=== PATIENT | male | born 1950 | race Caucasian/White ===

== ENCOUNTER → 2018-05-23 10:20 | Outpatient (CLI) | payer MEDICARE, OTHER ==
--- NOTE | ~2018-05-23 | ST ---
PATIENT:PARISH MATHEWS MEDICAL RECORD: [id number] SEX: M LOCATION:[facility] ORDER #: ADMISSION DATE: 05/23/18 AGE OF PATIENT: 68 REFERRING PHYSICIAN: INTERPRETING PHYSICIAN: TELMA EMERSON MD DATE OF SERVICE: 05/23/2018 PROCEDURE: Nuclear stress test. INDICATION: Angina, abnormal ECG, shortness of breath, smoking, COPD. DESCRIPTION: The patient was exercised on standard Rachid protocol for 5 minutes, terminated due to achievement of max target heart rate response with 33 mCi of sestamibi injected at peak stress, 11 mCi were used previously for rest images. FINDINGS: Gated SPECT reveals dilated cardiomyopathy, ejection fraction 26%. SPECT imaging: Cardiolite was used as myocardial fusion agent. There is a fixed perfusion defect inferiorly compatible with previous inferior myocardial infarction; however, there is a mixed perfusion defect anterolaterally, partially fixed, partially reversible. OVERALL IMPRESSION: This is a markedly abnormal nuclear stress test suggestive of multivessel coronary artery disease with a fixed perfusion using defect inferiorly, mixed perfusion defect, partially fixed, partially reversible anteriorly and laterally and a dilated ischemic cardiomyopathy, ejection fraction 26%. Would proceed with coronary angiography as followup study. TRANSINT:[id number] Voice Confirmation ID: [id number] DOCUMENT ID: [id number] CC: David Pearson-not found TELMA EMERSON MD CC: [id number] DICTATION DATE: 05/25/18 1427 CHIMNEY BUILDER HELPER: 05/26/18 0139 DEP CLI 05/23/18 [facility] [address] [place] [address]
== END | disposition home or self-care (01) ==
LOC: D.HCCARDIO 10:20
DX: R07.9 Chest pain, unspecified (principal)

== ENCOUNTER → 2018-06-12 06:13 | Outpatient (CLI) | payer MEDICARE, OTHER ==
[~2018-06-12] VITALS: Ht 182.9 cm; Wt 104.5 kg
--- NOTE | ~2018-06-12 | HEMODYNAMI ---
PATIENT:PARISH MATHEWS MEDICAL RECORD: [id number] : 50 LOCATION:[facility] ADMISSION DATE: 06/12/18 Generatedon:06/12/20189:24 Patient name: PARISH MATHEWS Patient #: [id number] SSN: : 1950 Date of study: 06/12/2018 Page: Of Hemodynamic Procedure Report Patient Data Patient Demographics Procedure consent was obtained First Name: PARISH Gender: Male Last Name: GEOFFREY : 1950 Patient #: [id number] Age: 68 year(s) Race: Unknown Additional ID: [id number] Contact details [address]: [address] [place] [address] State: [place] City: [place] Zip code: [address] Admission Admission Data Admission Date: 06/12/2018 Admission Time: 6:13 Admit Source: Other Height (in.): 72 BSA: 2.27 (m2) Height (cm.): 182.88 BMI: 31.39 (kg/m2) Weight (lbs.): 231.49 Weight (kg.): 105 Lab Results Lab Result Date: 06/12/2018 Lab Result Time: 7:10 Biochemistry Name Units Result Min Max BUN mg/dl 20 --(----)*- 7 18 Creatinine mg/dl 1 --(--*-)-- 0.6 1.3 CBC Name Units Result Min Max Hematocrit % 39.9 -*(----)-- 42 54 Hemoglobin g/dl 13.5 --(*---)-- 13.5 17.5 Procedure Procedure Types Cath Procedure Diagnostic Procedure LHC LHC w/Coronaries Procedure Description Procedure Date Procedure Date: 06/12/2018 Procedure Start Time: 9:10 Procedure End Time: 9:23 Procedure Staff Name Function Jairo Conteh MD Performing Physician Rudolph Rey RN Nurse Neno Dean RT Scrub Neil Salvador RT Monitor Mason Rea RN Egg Trayer Procedure Data Cath Procedure Fluoroscopy Diagnostic fluoroscopy Total fluoroscopy Time: 0 time: 0 min min Diagnostic fluoroscopy Total fluoroscopy dose: 901 dose: 901 mGy mGy Contrast Material Contrast Material Type Amount (ml) Isovue 300 69 Entry Location Entry Primary Successful Side Size Upsize Upsize Entry Closure [place] ccessful Closure Location (Fr) 1 (Fr) 2 (Fr) Remarks Device Remarks Radial Right 6 Fr Mechanical artery Short Compression Estimated blood loss: 10 ml Diagnostic catheters Device Type Used For End Catheter Placement DIAGNOSTIC Byron 110cm 5 Procedure Fr catheter ([id number]) DIAGNOSTIC Ki 110cm Procedure 5Fr catheter ([id number]) Procedure Complications No complications Procedure Medications Medication Administration Route Dosage Oxygen etCO2 Nasal cannula 2 l/min Lidocaine 2% added to field 20 Heparin Flush Bag added to field 2 bags (1000units/500ml NS) 0.9% NaCl I.V. 100 ml/hr Radial Cocktail added to field 1 syringe (Verapomil 2mg/Nitro 400mcg/Heparin 1500units) Versed I.V. 1 mg Fentanyl I.V. 50 mcg Versed I.V. 1 mg Fentanyl I.V. 50 mcg Versed I.V. 1 mg Fentanyl I.V. 50 mcg Hemodynamics Rest BSA: 2.27 (m2) O2 Consumption: Estimated: 257.44 (ml/min) O2 Consumption indexed : Estimated:113.41 (ml/min/m) Heart Rate: 63 (bpm) Pressure Samples Time Site Value (mmHg) Purpose Heart Use Rate(bpm) 9:14 LV 82/8,13 Snapshot 63 9:14 AO 84/45(65) Pullback 64 9:14 LV 88/9,19 Pullback 64 Gradients Valve Time Site 1 Site 2 Mean SEP/DFP Peak To Heart Use (mmHg) (sec/min) Peak Rate (mmHg) (bpm) Aortic 9:14 LV AO 4 11 4 64 88/9,19 84/45(65) Calculations Valve P-P Mean Valve Index Valve Source Name Gradient Area Flow (cm2) Aortic 4 4 4 4 Snapshots Pre Cath Intra NCS Post Cath Vital Signs Time Heart Resp SPO2 etCO2 NIBP Rhythm Pain Sedation Rate (ipm) (%) (mmHg) (mmHg) Status Level (bpm) 8:41:42 66 13 96 30.9 120/80(96) NSR 0 (11) 10(A) , No pain 8:45:52 62 17 95 39.2 117/71(93) NSR 0 (11) 10(A) , No pain 8:50:00 65 20 93 27.1 107/74(85) NSR 0 (11) 10(A) , No pain 8:54:06 59 14 94 14.3 110/72(87) NSR 0 (11) 10(A) , No pain 8:58:12 65 15 94 31.7 112/71(85) NSR 0 (11) 10(A) , No pain 9:02:20 61 18 95 21.8 113/68(81) NSR 0 (11) 10(A) , No pain 9:06:27 62 23 94 14.3 103/72(83) NSR 0 (11) 10(A) , No pain 9:10:33 57 16 94 31.7 110/63(85) NSR 0 (11) 9(A) , No pain 9:14:43 73 22 94 23.4 103/61(72) NSR 0 (11) 9(A) , No pain 9:18:51 65 14 94 27.9 87/60(73) NSR 0 (11) 9(A) , No pain 9:22:50 62 17 95 20.4 103/64(78) NSR 0 (11) 10(A) , No pain Medications Time Medication Route Dose Verified Delivered Reason Notes Effectiveness by by 8:40:04 Oxygen etCO2 2 l/min Jairo Galdamez used for Nasal St Alexy Rey RN procedure cannula 8:40:10 Lidocaine 2% added 20ml Jairo Gill for local to vial [facility] anesthetic field MD [place] 8:40:16 Heparin Flush added 2 bags Jairo Gill used for Bag to [facility] procedure (1000units/500ml field MD [place] NS) 8:40:25 0.9% NaCl I.V. 100 Jairo Galdamez Per ml/hr St Alexy Rey RN physician 9:08:03 Fentanyl I.V. 50 mcg Jairo Galdamez for sedation St Alexy Rye RN, MD 9:08:58 Versed I.V. 1 mg Jairo Galdamez for sedation [facility] Alexy Rey RN, MD 9:11:24 Radial Cocktail added 1 Jairo Gill for (Verapomil to syringe [facility] vasodilation 2mg/Nitro field MD [place] 400mcg/Heparin 1500units) 9:12:52 Versed I.V. 1 mg Jairo Buffie for sedation St Alexy Rey RN, MD 9:12:55 Fentanyl I.V. 50 mcg Jairo Hadleyie for sedation [facility] Alexy Rey RN, MD 9:17:01 Versed I.V. 1 mg Jairo Buffie for sedation St Alexy Rey RN, MD 9:17:06 Fentanyl I.V. 50 mcg Jairo Galdamez for sedation St Alexy Rey RN, MD Procedure Log Time Note 8:09:58 Informed consent obtained and on chart 8:10:03 Admit Source: Other 8:10:34 Diagnostic Cath status Elective 8:10:36 Time tracking: Regular hours (M-F 7:00 - 5:00) 8:10:39 Plan of Care:Hemodynamics will remain stable., Cardiac rhythm will remain stable., Comfort level will be maintained., Respiratory function will remain adequate., Patient/ family verbilizes understanding of procedure., Procedure tolerated without complication., Recovers from procedure without complications.. 8:19:36 Lab Result : BUN 20 mg/dl 8:19:36 Lab Result : Creatinine 1 mg/dl 8:19:36 Lab Result : Hemoglobin 13.5 g/dl 8:19:36 Lab Result : Hematocrit 39.9 % 8:19:38 Lab results completed and on chart. 8:27:27 Mason Rea RN sent for patient. Start room use. 8:32:13 Patient received from Pre/Post Procedure Room to CCL 2 Alert and oriented. Tansferred to table in Supine position. 8:32:14 Warm blankets applied, and idalia hugger turned on for patient comfort. 8:32:15 Correct patient and procedure confirmed by team. 8:32:15 ECG and BP/O2 sat monitors applied to patient. 8:32:16 Pre-procedure instructions explained to patient. 8:32:17 Pre-op teaching completed and patient verbalized understanding. 8:32:18 Family in waiting room. 8:32:19 Patient NPO since Midnight. 8:32:32 H&P Date Dictated: 05/15/2018 Within 30 days and on chart., H&P Addendum completed by physician on day of procedure. (MUST COMPLETE FOR ALL OUTPATIENTS). 8:32:35 Is the patient allergic to Iodine/contrast media? No. 8:32:37 Is patient on blood thinner?No 8:32:37 Patient diabetic? No. 8:32:39 Previous problem with sedation/anesthesia? No ? 8:32:40 Snore? No 8:32:42 Sleep apnea? No 8:32:43 Deviated septum? Yes 8:32:45 Opens mouth fully? Yes 8:32:45 Sticks out tongue? Yes 8:32:47 Airway obstruction? No ? 8:32:48 Dentures? No ? 8:40:04 Oxygen 2 l/min etCO2 Nasal cannula was administered by Rudolph Rey RN; used for procedure; 8:40:10 Lidocaine 2% 20ml vial added to field was administered by Jairo Conteh MD; for local anesthetic; 8:40:16 Heparin Flush Bag (1000units/500ml NS) 2 bags added to field was administered by Jairo Conteh MD; used for procedure; 8:40:25 0.9% NaCl 100 ml/hr I.V. was administered by Rudolph Rey RN; Per physician; 8:40:38 Vital chart was started 8:44:57 Pre procedure: right dorsailis pedis pulse 1+ Palpable, but thready & weak; easily obliterated 8:44:59 Modified Geoffrey's test Ulnar < 7 seconds 8:45:02 Patient pain scale 0/10 ?. 8:45:09 IV patent on arrival in left forearm with 0.9% NaCl at [facility]. 8:45:14 Lab results completed and on chart. 8:45:18 Right Radial & Right Groin area was prepped with chlora-prep and draped in sterile fashion 8:45:20 Alarms reviewed by R. N. 8:45:20 Sharps counted by scrub and verified by R.N. 8:45:24 Use device set Radial Dx or PCI 8:45:27 Tegaderm 4 x 4 (1626W) opened to sterile field. 8:45:27 ACIST Manifold (46183) opened to sterile field. 8:45:28 ACIST Hand Control (08931) opened to sterile field. 8:45:29 ACIST Syringe (73307) opened to sterile field. 8:45:30 Medline Cath Pack ([id number]) opened to sterile field. 8:45:30 Bag Decanter (2002S) opened to sterile field. 8:45:31 DIAGNOSTIC WIRE .035 260cm J wire (402352) opened to sterile field. 8:45:32 MBrace Wrist Support ([id number]) opened to sterile field. 8:45:33 SHEATH 6FR Slender (46-6418) opened to sterile field. 8:45:52 Patient Weight : 231.49 lbs 8:45:57 Patient Height : 72 inches 9:07:13 --------ALL STOP TIME OUT------ 9:07:14 Final Timeout: patient, procedure, and site verified with staff and physician. All members of the team are in agreement. 9:07:17 Right Radial & Right Groin site verified by team. 9:07:20 Physical assessment completed. ASA score P 2 - A patient with mild systemic disease as per Jairo Conteh MD. 9:07:23 Sedation plan: IV Moderate Sedation Medication:Versed, Fentanyl 9:08:03 Fentanyl 50 mcg I.V. was administered by Rudolph Rey RN; for sedation; 9:08:58 Versed 1 mg I.V. was administered by Rudolph Rey RN; for sedation; 9:09:50 Procedure started. 9:09:50 Full Disclosure recording started 9:10:11 Local anesthetic to right radial artery with Lidocaine 2% by Jairo Conteh MD.INITIAL ACCESS ONLY 9:11:24 Radial Cocktail (Verapomil 2mg/Nitro 400mcg/Heparin 1500units) 1 syringe added to field was administered by Jairo Conteh MD; for vasodilation; 9:11:42 A 6 Fr Short sheath was inserted into the Right Radial artery 9:11:53 A DIAGNOSTIC Byron 110cm 5 Fr catheter (559902) was advanced over the wire and used for Procedure. 9:12:52 Versed 1 mg I.V. was administered by Rudolph Rey RN; for sedation; 9:12:55 Fentanyl 50 mcg I.V. was administered by Rudolph Rey RN; for sedation; 9:13:43 RCA angiography performed. 9:15:44 LV angiography performed. 9:15:45 LV gram done using RUBIO 9:15:51 EF : 15 % 9:15:54 LV hemodynamics recorded. 9:15:57 Injector settings: Ml/sec: 5, Volume: 15, 9:16:00 Catheter exchanged over wire. 9:16:30 A DIAGNOSTIC Ki 110cm 5Fr catheter (479445) was advanced over the wire and used for Procedure. 9:17:01 Versed 1 mg I.V. was administered by Rudolph Rey RN; for sedation; 9:17:06 Fentanyl 50 mcg I.V. was administered by Rudolph Rey RN; for sedation; 9:17:36 LCA angiography performed. 9:19:06 Catheter removed. 9:19:09 TR BAND Standard ([id number]) opened to sterile field. 9:19:23 Sheath removed intact; hemostasis achieved with Mechanical Compression to the Right Radial artery. 9:19:34 Procedure ended.(Physican Out) 9:22:23 Fluoroscopy time 00.00 minutes. 9:22:26 Fluoroscopy dose: 901 mGy 9:: Flurop Dose total: 901 9:22:30 Contrast amount:Isovue 300 69ml. 9:22:31 Sharps counted by scrub and verified by R.N. 9::34 TR band inflated with 10cc of air. 9:22:35 Insertion/operative site no bleeding no hematoma. 9:22:39 Post Procedure Pulses reassessed and unchanged 9:22:42 Post-procedure physical assessment completed. ASA score P 2 - A patient with mild systemic disease as per Jairo Conteh MD. 9:22:45 Post procedure rhythm: unchanged. 9:22:47 Estimated blood loss: 10 ml 9:22:49 Post procedure instruction explained to patient.Patient verbalizes understanding. 9:22:49 Patient needs reinforcement of post procedure teaching. 9:22:55 Procedure and supply charges have been captured, reviewed, submitted and are correct. 9:22:57 Procedure Complication : No complications 9:23:18 Vital chart was stopped 9:23:18 See physician's report for complete and final results. 9:23:20 Report given to Pre/Post Procedure Room. 9:23:22 Patient transfered to Pre/Post Procedure Room with Stretcher. 9:23:24 Procedure ended. 9:23:24 Full Disclosure recording stopped 9:23:28 End room use (Document Last) Device Usage Item Name Manufacture Quantity Catalog Hospital Part Current Minimal Lot# / Number Charge Number Stock Stock Serial# Code Tegaderm 4 3M 1 1626W 100072 297992 118452 5 x 4 (1626W) ACIST Acist 1 99636 534371 370096 528591 5 Manifold Medical (05694) Systems Inc ACIST Hand Acist 1 98417 375484 560682 282495 5 Control Medical (16857) Systems Inc ACIST Acist 1 17355 533721 463595 719474 20 Syringe Medical (56635) Systems Inc Medline Medline 1 [id number] 343873 45647 013002 5 Cath Pack ([id number]) Bag Microtek 1 2001S 756234 58136 170792 5 Decanter Medical Inc. (2001S) DIAGNOSTIC St Eric 1 129985 838808 922383 598833 30 WIRE .035 260cm J wire (170673) MBrace Advanced 1 140-0250-00 718084 13532 492451 5 Wrist Vascular Support Dynamics (044164426) SHEATH 6FR Terumo 1 [id number] 818202 858238 743735 5 Slender (80-1060) DIAGNOSTIC Terumo 1 40-5013 578771 925579 651646 5 Byron 110cm 5 Fr catheter (849788) DIAGNOSTIC Terumo 1 40-5023 369722 808430 827906 5 Ki 110cm 5Fr catheter (346812) TR BAND Terumo 1 [id number] 216548 883991 800720 40 Standard ([id number]) Signature Audit Austin Stage Time Signature Unsigned Intra-Procedure 06/12/2018 Neil Salvador 9:24:23 AM RT(R) Signatures Monitor : Neil Salvador RT Signature : Date : Time : [facility] [address] [place] [address]
[~2018-06-12 06:13] MED LIST: ALDACTONE25 MG PO; BAYER CHEWABLE81 MG PO; INCRUSE ELLI62.5 MCG INH; LANOXIN125 MCG PO
[2018-06-12 07:10] VITALS: BP 127/91; Ht 182.9 cm; Wt 104.5 kg
[2018-06-12 07:26] LABS: BASOPHILS 1.2 % (0-2); EOSINOPHILS 5.5 % (0-7); HEMATOCRIT 39.9 % (42.0-54.0); HEMOGLOBIN 13.5 g/dL (13.5-17.5); IMMATURE GRANULOCYTES 0.3 % (0-5); LYMPHOCYTES 21.4 % (15-50); MCH 30.2 pg (26.0-34.0); MCHC 33.8 g/dL (31.0-37.0); MCV 89.3 fL (80.0-100.0); MEAN PLATELET VOLUME 11.9 fL (7.4-10.4); MONOCYTES 7.8 % (2-11); NEUTROPHILS 63.8 % (40-80); PLATELET COUNT 171 10x3/uL (130-400); RBC 4.47 10x6/uL (4.20-6.10); RDW 14.1 % (11.5-14.5); WBC 6.7 10x3/uL (4.8-10.8)
[2018-06-12 07:39] LABS: CALC OSMOLALITY 286 mosm/kg (275-300); CARBON DIOXIDE 21.3 mmol/L (21.0-32.0); CHLORIDE - SERUM 106 mmol/L (98-107); GLUCOSE 111 mg/dL (74-106); POTASSIUM - SERUM 4.3 mmol/L (3.5-5.1); SODIUM 142 mmol/L (136-145); UREA NITROGEN 20 mg/dL (7-18); eGFR NON AFRICAN AMERICAN 79 mL/min (90-120)
--- NOTE | 2018-06-12 09:39 | NUR ---
RECIEVED TO ROOM VIA STRETCHER FROM PAINT COATING MACHINE OPERATOR WITH TR BAND TO R/WRIST CDI NO BLEEDING OR HEMATOMA NOTED. PATIENT CONNECTED TO MONITOR FOR OBSERVATION WITH HR 59 BP 100/59.
--- NOTE | 2018-06-12 09:43 | NUR ---
DR MCNULTY PRESENT IN ROOM WITH PATIENT AND FAMILY. TR BAND TO R/WRIST IS CDI AND VSS
--- NOTE | 2018-06-12 09:56 | NUR ---
TR BAND INTACT WITH CHEST PAIN DENIED. VSS AND NO DISTRESS NOTED. TOLERATING PO FLUIDS WITH NAUSEA DENIED.
--- NOTE | 2018-06-12 10:29 | NUR ---
TR BAND IS CDI WITH CHEST PAIN DENIED VSS. SANDWICH AND SODA TO BEDSIDE WITH NAUSEA DENIED
--- NOTE | 2018-06-12 10:56 | NUR ---
4 CC AIR REMOVED FROM TR BAND WITH NO BLEEDING NOTED
--- NOTE | 2018-06-12 11:23 | NUR ---
4 CC AIR REMOVED FROM TR BAND WITH NO BLEEDING NOTED. PIV REMOVED WITH DRESSING APPLIED. PATIENT UP TO GET DRESSED FOR DISCHARGE HOME CHEST PAIN DENIED
--- NOTE | 2018-06-12 11:39 | NUR ---
4 CC AIR REMOVED FROM TR BAND WITH NO BLEEDING NOTED. PIV REMOVED WITH DRESSING APPLIED. PATIENT UP TO GET DRESSED FOR DISCHARGE HOME
--- NOTE | 2018-06-12 11:56 | NUR ---
VERBAL AND WRITTEN DISCHARGE GONE OVER WITH PATIENT AND FAMILY. TR BAND REMOVED WITH DRESSING APPLIED. PATIENT LEFT VIA WC TO PARKING FOR TRANSPORT HOME CHEST PAIN DENIED
--- NOTE | 2018-06-14 13:30 | OP ---
PATIENT NAME: PARISH MATHEWS MEDICAL RECORD: [id number] :50 LOCATION:D.[facility] ADMISSION DATE: SURGEON: LALITO MCNULTY MD DATE OF OPERATION: 06/12/2018 PROCEDURE: Left heart catheterization, selective coronary angiography, right radial approach. CATHETERS: Radial catheter, radial sheath, Lancaster catheter. The procedure was well tolerated. The patient returned to sultana. Sheath was removed. TR band was placed. FINDINGS: Left ventriculography in 30-degree RUBIO view shows global hypokinesis. Overall, LV function reduced at 20%. CORONARY ANATOMY: LEFT MAIN: Left main is free of disease. LAD: Has several severely diffuse areas of stenosis, greatest of which is 90%. CIRCUMFLEX: With ostial stenosis, basically subtotalled distally. RIGHT CORONARY ARTERY: Totally occluded, fills late via left to right collaterals as well as bridging collaterals. IMPRESSION: Multivessel coronary artery disease, severe LV dysfunction. We will begin inotropic support with digoxin, cardiomyopathic medication with Aldactone. I am unsure how much more he would tolerate given his underlying relative blood pressures, high risk for intervention from a percutaneous standpoint, probably prohibitive risk from open heart, could consider medical therapy with intervention after 4-6 weeks of therapy. TRANSINT:[id number] Voice Confirmation ID: [id number] DOCUMENT ID: [id number] LALITO MCNULTY MD at 1330 CC: [id number] DICTATION DATE: 06/12/1830 SUPERVISOR SHEARING: 06/12/18 1035 DEP CLI 06/12/18 [place] [id number] [place] [id number]
== END | disposition home or self-care (01) ==
LOC: D.CATH 06:13
PROVIDERS: Internal Medicine Interventional Cardiology
DX: I25.110 Atherosclerotic heart disease of native coronary artery with unstable angina pectoris (principal); I25.82 Chronic total occlusion of coronary artery; R94.30 Abnormal result of cardiovascular function study, unspecified

== ENCOUNTER → 2018-06-18 08:35 | Outpatient (CLI) | payer MEDICARE, OTHER ==
[2018-06-12 07:10] VITALS: BMI 31.2
[2018-06-19 12:20] LABS: ANA REFLEX - DIRECT Negative (Negative)
[2018-06-20 03:10] LABS: ANGIOTENSIN CONVERTING ENZYME 48 U/L (14-82)
[2018-06-22 16:15] LABS: FUNGAL - ASP FLAVUS Negative (Neg:<1:1); FUNGAL - ASP NIGER Negative (Neg:<1:1); FUNGAL - ASPER FUMIGATUS Negative (Neg:<1:1)
== END | disposition home or self-care (01) ==
LOC: D.RT 08:35
PROVIDERS: Internal Medicine Pulmonary Disease
DX: R06.09 Other forms of dyspnea (principal); R93.89 Abnormal findings on diagnostic imaging of other specified body structures; J44.9 Chronic obstructive pulmonary disease, unspecified

== ENCOUNTER → 2018-10-22 08:45 | Outpatient (CLI) | payer MEDICARE, OTHER ==
[2018-06-12 07:10] VITALS: BMI 31.2
--- NOTE | 2018-10-23 14:00 | EC ---
PATIENT:PARISH MATHEWS DATE OF SERVICE: 10/22/18 SEX: M MEDICAL RECORD: [id number] DATE OF : [birth year] LOCATION:D.[facility] AGE OF PATIENT: 68 ADMISSION DATE: 10/22/18 REFERRING PHYSICIAN: INTERPRETING PHYSICIAN: LALITO MCNULTY MD ECHOCARDIOGRAM REPORT ECHO CHARGES 4 ECHO COMPLETE Date: 10/22/18 CLINICAL DIAGNOSIS: CARDIOMYOPATHY ECHOCARDIOGRAPHIC MEASUREMENTS (adult normal given) AC root (d.<3.7cm) 4.4 cm LV Septum d (<1.2 cm> 1.3 cm Valve Excursion 1.6 cm LV Septum (systole) 1.4 cm Left Atria (s.<4.0cm> 4.3 cm LVPW d(<1.2cm) 1.2 cm RV (d.<2.3cm) 5.2 cm LVPW (sytole) 1.4 cm LV diastole(<5.6CM) 7.8 cm MV E-F(>70mm/sec) cm LV systole 6.3 cm LVOT Diameter 2.0 cm MV exc.(>10mm) 2.4 cm Est.ejection fraction (50-75%) % DOPPLER: LVIT cm/sec A cm/sec E 121 cm/sec LA cm/sec RVSP 51 mmHg LVOT 111 cm/sec AOP1/2T m/s Asc. Ao 140 cm/sec RVOT 57 cm/sec RA cm/sec PA 81 cm/sec AV Gradient Peak 7.80 mmHg AV Mean 4.13 mmHg AV Area 2.5 cm MV Gradient Peak 5.98 mmHg MV Mean 2.06 mmHg MV Area cm COMMENTS: Studio Assistant: Jackie MONK Coagulating Bath Operator: 3 Dr. Miller TAPE# PACS Pericardial Effusion N DATE OF SERVICE: 10/22/2018 Adequate 2-D, color-flow and spectral Doppler, and M-mode. LVH is present. LV internal dimensions are normal. LV appears to be mildly globally hypo with EF at lower limits of normal to mildly reduced at 45% to 50%. Aortic valve sclerosis without stenosis by Doppler interrogation. Left atrium is dilated at 4.3 cm. Mitral valve shows no prolapse. Nqbj-nx-jksotdkb MR. Right-sided chambers are grossly normal. Mild TR. ECHOCARDIOGRAM REPORT [id number] PARISH MATHEWS TRANSINT:[id number] Voice Confirmation ID: [id number] DOCUMENT ID: [id number] LALITO MCNULTY MD at 1400 CC: [id number] DICTATION DATE: 10/23/18 1259 AIRCRAFT LAY OUT WORKER: 10/23/18 1345 DEP CLI 10/22/18 [place] [id number] [place] [id number]
== END | disposition home or self-care (01) ==
LOC: D.HCCARDIO 08:45
PROVIDERS: ATTEND Internal Medicine Interventional Cardiology
DX: I42.9 Cardiomyopathy, unspecified (principal)

== ENCOUNTER → 2020-10-12 08:13 | Outpatient (CLI) | payer MEDICARE, OTHER ==
[2020-07-27 09:34] VITALS: BMI 27.6
--- NOTE | ~2020-10-12 | EC ---
PATIENT:PARISH MATHEWS DATE OF SERVICE: 10/12/20 SEX: M MEDICAL RECORD: [id number] DATE OF : [birth year] LOCATION:D.[facility] AGE OF PATIENT: 70 ADMISSION DATE: 10/12/20 REFERRING PHYSICIAN: INTERPRETING PHYSICIAN: LALITO MCNULTY MD ECHOCARDIOGRAM REPORT ECHO CHARGES 4 ECHO COMPLETE Date: 10/12/20 CLINICAL DIAGNOSIS: HX OF CARDIOMYOPATHY/ ASSESS EF AND TRICUSPID REGURG ECHOCARDIOGRAPHIC MEASUREMENTS (adult normal given) AC root (d.<3.7cm) 4.4 cm LV Septum d (<1.2 cm> 1.4 cm Valve Excursion 1.7 cm LV Septum (systole) 1.5 cm Left Atria (s.<4.0cm> 5.4 cm LVPW d(<1.2cm) 1.2 cm RV (d.<2.3cm) 5.9 cm LVPW (sytole) 1.3 cm LV diastole(<5.6CM) 8.8 cm MV E-F(>70mm/sec) cm LV systole 7.3 cm LVOT Diameter 2.3 cm MV exc.(>10mm) 2.0 cm Est.ejection fraction (50-75%) % DOPPLER: LVIT cm/sec A 32.0 cm/sec E 100.0 cm/sec LA cm/sec RVSP 50 mmHg LVOT 95 cm/sec AOP1/2T m/s Asc. Ao 101 cm/sec RVOT 55 cm/sec RA cm/sec PA 76 cm/sec AV Gradient Peak 4.10 mmHg AV Mean 2.12 mmHg AV Area 4.0 cm MV Gradient Peak 7.98 mmHg MV Mean 2.53 mmHg MV Area cm COMMENTS: Cook Sauce: 2 SUGEY MONK Front Office Associate: 3 Dr. Miller TAPE# PACS Pericardial Effusion N DATE OF SERVICE: Adequate 2D, color flow imaging, spectral Doppler, and M-Mode. FINDINGS: Mild LVH. LV internal dimensions are dilated. LV is mildly globally hypo with EF lower limits of normal to mildly reduced 45% to 50%. Aortic valve is sclerosed without stenosis by Doppler interrogation. Left atrium dilated at 5.4 cm. Mitral valve shows no prolapse. Moderate MRSA. Right side is grossly normal. Mild TR. ECHOCARDIOGRAM REPORT [id number] PARISH MATHEWS TRANSINT:[id number] Voice Confirmation ID: [id number] DOCUMENT ID: [id number] LALITO MCNULTY MD CC: [id number] DICTATION DATE: 10/13/20 1448 BLADE GROOVER: 10/13/202221 DEP CLI 10/12/20 [place] [id number] [place] [id number]
[~2020-10-12 08:13] MED LIST changes: +COZAAR25 MG PO; +FUROSEMIDE40 MG PO; +PLAVIX75 MG PO
== END | disposition home or self-care (01) ==
LOC: D.HCCECHO 08:13
PROVIDERS: ATTEND Internal Medicine Interventional Cardiology
DX: I42.9 Cardiomyopathy, unspecified (principal)